=== PATIENT | male | born 1980 | race Caucasian/White ===

== ENCOUNTER 2017-05-31 11:21 | Emergency (ER) | payer OTHER ==
[~2017-05-31] VITALS: Ht 177.8 cm; Wt 74.8 kg
--- NOTE | 2017-05-31 11:35 | NUR ---
TO ROOM: AMBULATE TO ROOM WITHOUT ASSISTANCE. FRIEND WITH PATIENT. COMPLAINS OF TOOTHACHE FOR ABOUT A WEEK.
[2017-05-31] MEDS ORDERED: CATAPRES ONE (11:50)
[2017-05-31] MEDS ORDERED: CATAPRES PO STA (11:56)
--- NOTE | 2017-05-31 12:06 | ER.PDOC ---
General Chief Complaint: Toothache Stated Complaint: TOOTH ACHE TRAVEL OUT OF US: No Time seen by MD: 11:44 Source: patient Exam Limitations: no limitations History of Present Illness Initial Comments toothasche Timing/Duration: 1 week Associated Symptoms: denies symptoms Allergies: Coded Allergies: No Known Allergies (Unverified , 04/20/17) Home Meds No Active Prescriptions or Reported Meds Past Medical History Medical History: no pertinent history Surgical History: no surgical history Family History Significant Family History: no pertinent family hx Social History Smoking: non-smoker Alcohol Use: none Drug Use: none Review of Systems All Other Systems: Reviewed and Negative Physical Exam General Appearance: No Apparent Distress Neck: Non-Tender, Full Range of Motion Respiratory: chest non-tender, lungs clear CVS: reg rate & rhythm, no murmur Gastrointestinal: No Organomegaly Rectal: Normal Exam, Normal Rectal Tone Back: Normal Inspection Extremities: Normal Range of Motion 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 NML as Tested Skin: Normal Color Lymphatic: No Adenopathy Comments dental caries poor dentition Results/Orders Results/Orders Administered Medications Medications (Trade) Dose Ordered Sig/Brianda Route PRN Reason Start Time Stop Time Status Last Admin Dose Admin Clonidine (Catapres) 0.2 mg STAT STAT PO 05/31/17 11:56 05/31/17 11:57 DC 05/31/17 11:58 Progress Progress non compliant htn clonidine 0.2 mg po 171/102 Departure Time of Disposition: 12:03 Disposition: 01 HOME, SELF-CARE Impression: Primary Impression: Toothache Condition: Stable Referrals: PCP,UNKNOWN (PCP) PRIMARY CARE PROVIDER Scripts No Active Prescriptions or Reported Meds YENNI OBRIEN Dr., MD May 31, 2017 12:06
--- NOTE | 2017-05-31 12:25 | NUR ---
REQUEST FOR PAIN MEDS DENIED BY DOCTOR
--- NOTE | 2017-05-31 12:29 | NUR ---
PAIN REASSESSMENT 05/22
[2017-05-31 12:52] VITALS: BP 177/102
== END 2017-05-31 12:38 | disposition home or self-care (01) ==
LOC: ER 11:21
DX: K08.89 Other specified disorders of teeth and supporting structures (principal)
CPT/HCPCS: 99283